=== PATIENT | female | born 1940 | race Two or more races ===

== ENCOUNTER 2025-01-24 16:12 | Emergency (ER) | payer OTHER, MEDICAID ==
[~2025-01-24] VITALS: Ht 162.6 cm; Wt 60.0 kg
[2025-01-24 16:18] VITALS: O2SAT 98
[2025-01-24] MEDS: METOCLOPRAMIDE HCL 10MG/2ML VIAL IV ONE (18:00)
[2025-01-24] MEDS: SODIUM CHLORIDE 0.9% 1,000 ML IV ONE (18:00)
[2025-01-24 18:02] LABS: CLARITY URINE CLOUDY (CLEAR); COLOR URINE YELLOW (YELLOW); GLUCOSE URINE NEGATIVE (NEGATIVE); KETONES URINE NEGATIVE (NEGATIVE); LEUKOCYTE ESTERASE URINE NEGATIVE (NEGATIVE); NITRITE URINE NEGATIVE (NEGATIVE); OCCULT BLOOD URINE NEGATIVE (NEGATIVE); PH URINE 8.0 (4.5-8.0); PROTEIN URINE TRACE (NEGATIVE); SPECIFIC GRAVITY URINE 1.011 (1.005-1.030); UROBILINOGEN URINE 0.2 E.U./dL (0.2-1.0)
[2025-01-24 18:19] LABS: BASOPHILS % 0.9 % (0.0-2.0); EOSINOPHILS % 2.7 % (0.0-5.0); HEMATOCRIT. 39.4 % (36.0-48.0); HEMOGLOBIN. 12.6 g/dL (12.0-16.0); LYMPHOCYTES % 24.4 % (20.0-50.0); MEAN PLATELET VOLUME 8.4 fl (7.4-10.4); MONOCYTES % 8.6 % (2.0-8.0); NEUTROPHILS % 63.4 % (40.0-76.0); PLATELET 231 x1000/uL (130-400); RED BLOOD CELL COUNT 4.64 mill/uL (4.2-5.4); RED CELL DISTRIBUTION WIDTH 12.8 % (11.6-14.6)
[2025-01-24 18:31] LABS: TROPONIN I HIGH SENSITIVITY < 4 ng/L (3.0-34)
[2025-01-24 18:32] LABS: CREATININE 0.6 mg/dL (0.6-1.0); UREA NITROGEN BLOOD 6 mg/dL (9-23)
[2025-01-24 18:34] LABS: ASPARTATE AMINOTRANSFERASE 22 IU/L (<34); BILIRUBIN DIRECT 0.2 mg/dL (<=3.0); BILIRUBIN TOTAL 0.6 mg/dL (0.1-1.0); PROTEIN TOTAL 6.8 g/dL (6.0-8.3)
[2025-01-24 18:36] LABS: SQUAMOUS EPITHELIAL CELL URINE FEW /lpf (RARE/1+); WBC URINE 0-2 /hpf (0-2)
[2025-01-24 18:37] LABS: BACTERIA URINE 2+
[2025-01-24 18:55] VITALS: BP 160/88; PULSE 95; RESP 18; TEMP 36.7; O2SAT 97
[2025-01-24] MEDS ORDERED: AZITHROMYCIN 500MG/250ML 250 ML IV NR (20:44)
[2025-01-24] MEDS ORDERED: CEFTRIAXONE 1GM/50ML 50 ML IV ONE (20:45)
[2025-01-24] MEDS ORDERED: AZITHROMYCIN 500MG/250ML 250 ML IV ONE (20:45)
== END 2025-01-24 21:10 | disposition left against medical advice (07) ==
LOC: ER 16:12
DX: J18.9 Pneumonia, unspecified organism (principal); R10.84 Generalized abdominal pain; I10 Essential (primary) hypertension; E11.9 Type 2 diabetes mellitus without complications; E78.00 Pure hypercholesterolemia, unspecified; Z53.29 Procedure and treatment not carried out because of patient's decision for other reasons; Z88.5 Allergy status to narcotic agent; Z90.49 Acquired absence of other specified parts of digestive tract
CPT/HCPCS: 99285; 74176; 96374; 96361; 80076; 80048; 81003; 83690; 83735; 85025; 84484; 36415; J2765; J7030; A4606; J0456